=== PATIENT | male | born 1945 | race Two or more races ===

== ENCOUNTER → 2024-11-28 10:49 | Outpatient (REF) | payer BC, SELFPAY | LOC: HWRCS 10:49 | PROVIDERS: ATTENDING PHYSICIAN Internal Medicine Cardiovascular Disease; PRIMARYCARE PHYSICIAN Family Medicine | DX: R01.1 Cardiac murmur, unspecified (principal) | CPT/HCPCS: 93306 ==

== ENCOUNTER → 2024-12-12 14:16 | Outpatient (REF) | payer BC, SELFPAY | LOC: HWRAD 14:16 | PROVIDERS: ATTENDING PHYSICIAN Internal Medicine Gastroenterology; FAMILY PHYSICIAN Family Medicine | DX: D69.6 Thrombocytopenia, unspecified (principal); R79.89 Other specified abnormal findings of blood chemistry; Z12.11 Encounter for screening for malignant neoplasm of colon; R63.4 Abnormal weight loss | CPT/HCPCS: 76700; 93975 ==